=== PATIENT | male | born 1950 | race Caucasian/White ===

== ENCOUNTER 2017-02-08 20:18 | Outpatient (CLI) | payer MEDICARE, OTHER | END 2017-02-09 07:23 | disposition home or self-care (01) | LOC: SLEEP 20:18 | PROVIDERS: ATTEND Nurse Practitioner Family | DX: G47.33 Obstructive sleep apnea (adult) (pediatric) (principal); R06.83 Snoring | CPT/HCPCS: 95811 ==

== ENCOUNTER 2017-05-17 20:27 | Outpatient (CLI) | payer MEDICARE, OTHER | END 2017-05-18 06:10 | disposition home or self-care (01) | LOC: SLEEP 20:27 | PROVIDERS: ATTEND Nurse Practitioner Family | DX: G47.33 Obstructive sleep apnea (adult) (pediatric) (principal); R06.83 Snoring; Z86.73 Personal history of transient ischemic attack (TIA), and cerebral infarction without residual deficits | CPT/HCPCS: 95811 ==